=== PATIENT | female | born 1955 | race Caucasian/White ===

== ENCOUNTER 2017-01-07 20:05 | Observation (INO) | payer OTHER ==
[~2017-01-07] VITALS: Ht 177.8 cm; Wt 101.8 kg
[2017-01-07 22:57] VITALS: PULSE 57; TEMP 97.5
[2017-01-08 00:43] VITALS: BP 145/72
[2017-01-08] MEDS ORDERED: K-DUR20 MEQ PO (01:38)
[2017-01-08] MEDS ORDERED: EPA FISH OIL1 SGL PO (01:39)
[2017-01-08] MEDS ORDERED: FLONASEALLERGY NS (01:40)
[2017-01-08] MEDS ORDERED: ZOCOR 40MG40 MG PO ×2 (01:40→01:49)
[2017-01-08] MEDS ORDERED: AMITRIPTYLINE H75 M1 PO (01:41)
[2017-01-08] MEDS ORDERED: PROTONIX 40MG T40 MG PO (01:41)
[2017-01-08] MEDS ORDERED: PAXIL CR37.5 MG PO (01:42)
[2017-01-08] MEDS ORDERED: KLONOPIN 0.5MG0.5 MG PO (01:43)
[2017-01-08] MEDS ORDERED: ZESTRIL40 MG PO (01:44)
[2017-01-08] MEDS ORDERED: VICTOZA6 MG/ML SQ (01:44)
[2017-01-08] MEDS ORDERED: FORTAMET500 M1 PO (01:45)
[2017-01-08] MEDS ORDERED: JANUVIA 100MG100 MG PO (01:45)
[2017-01-08] MEDS ORDERED: VITAMIN D 50,1.25 MG PO (01:47)
[2017-01-08] MEDS ORDERED: NICODERM C14 MG/PATC TD (01:48)
[2017-01-08] MEDS ORDERED: VITAMIN B11000 MCG/M IM (01:48)
[2017-01-08] MEDS ORDERED: PLAVIX 75MG TAB75 MG PO (01:49)
[2017-01-08] MEDS ORDERED: NORCO 325 MG-101 TAB PO (01:50)
[2017-01-08] MEDS ORDERED: FLEXERIL 1010 MG/TAB PO (01:51)
[2017-01-08] MEDS ORDERED: LOPRESSOR 225 MG/TAB PO (01:51)
[2017-01-08 04:49] VITALS: BP 126/53; PULSE 65; TEMP 97.7
[2017-01-08 07:30] LABS: BASO % 0.2 % (0.0-2.0); EOS # 0.1 (0.0-0.7); EOS % 2.2 % (0-4.0); GRAN # 2.2 (1.4-6.5); GRAN % 48.1 % (42.2-75.2); LYMPH # 1.8 (1.2-3.4); LYMPH % 40.1 % (20.0-51.0); MEAN CELL VOLUME 67 fl (80.0-100.0); MEAN CORPUSCULAR HGB CONC 29 g/dl (33.0-37.0); MEAN PLATELET VOLUME 10.1 fl (7.4-10.4); MONO # 0.4 (0.1-0.6); MONO % 9.4 % (1.7-9.3); PLATELET COUNT 192 K/mm3 (130-400); RED BLOOD COUNT 4.88 M/mm3 (4.10-5.30); REDCELL DISTRIBUTION WIDTH-CV 18.2 % (11.5-14.5); WHITE BLOOD COUNT 4.6 K/mm3 (4.8-10.8)
[2017-01-08 07:32] LABS: HEMOGLOBIN 9.4 g/dl (12.5-16.0); MEAN CORPUSCULAR HEMOGLOBIN 19 pg (27.0-31.0)
[2017-01-08 07:33] LABS: HEMATOCRIT 32.5 % (37.0-47.0)
[2017-01-08 07:52] LABS: CALCIUM 8.4 mg/dL (8.4-10.2); CREATININE, serum 0.66 mg/dL (0.52-1.25); POTASSIUM 3.7 mmol/L (3.4-5.0)
[2017-01-08 09:42] VITALS: BP 133/48; PULSE 55; TEMP 98
[2017-01-08 14:32] VITALS: BP 205/82; PULSE 77; TEMP 97.5
[2017-01-08 16:00] VITALS: BP 156/65
[2017-01-08 22:21] VITALS: BP 153/62; PULSE 51; TEMP 97.4
[2017-01-09 04:50] VITALS: BP 139/52; PULSE 54; TEMP 98.5
[2017-01-09 08:28] LABS: MEAN CELL VOLUME 68 fl (80.0-100.0); MEAN CORPUSCULAR HGB CONC 29 g/dl (33.0-37.0); MEAN PLATELET VOLUME 9.9 fl (7.4-10.4); PLATELET COUNT 174 K/mm3 (130-400); RED BLOOD COUNT 4.87 M/mm3 (4.10-5.30); REDCELL DISTRIBUTION WIDTH-CV 18.5 % (11.5-14.5); WHITE BLOOD COUNT 3.6 K/mm3 (4.8-10.8)
[2017-01-09 08:32] LABS: HEMATOCRIT 32.9 % (37.0-47.0); HEMOGLOBIN 9.5 g/dl (12.5-16.0); MEAN CORPUSCULAR HEMOGLOBIN 20 pg (27.0-31.0)
[2017-01-09 09:54] VITALS: BP 194/68; PULSE 59; TEMP 97.7
[2017-01-09 11:20] VITALS: BP 162/70
== END 2017-01-09 12:46 | disposition home or self-care (01) ==
LOC: SURG 20:05 → JCC 22:12
PROVIDERS: Surgery
DX: R10.12 Left upper quadrant pain (principal); E66.01 Morbid (severe) obesity due to excess calories; Z98.84 Bariatric surgery status; Z86.73 Personal history of transient ischemic attack (TIA), and cerebral infarction without residual deficits; E78.5 Hyperlipidemia, unspecified; E11.9 Type 2 diabetes mellitus without complications; I10 Essential (primary) hypertension; D64.9 Anemia, unspecified; G89.29 Other chronic pain; E87.5 Hyperkalemia; F17.210 Nicotine dependence, cigarettes, uncomplicated; Z86.79 Personal history of other diseases of the circulatory system
CPT/HCPCS: G0378; G0379; J1650; J1815; J2270; J2405; J3480

== ENCOUNTER 2017-08-18 10:17 | Outpatient (CLI) | payer MEDICAID ==
[~2017-08-18] VITALS: Ht 177.8 cm; Wt 106.7 kg
[~2017-08-18 10:17] MED LIST: AMITRIPTYLINE H75 M1 PO; EPA FISH OIL1 SGL PO; FLEXERIL 1010 MG/TAB PO; FLONASEALLERGY NS; FORTAMET500 M1 PO; JANUVIA 100MG100 MG PO; K-DUR20 MEQ PO; KLONOPIN 0.5MG0.5 MG PO; LOPRESSOR 225 MG/TAB PO; NICODERM C14 MG/PATC TD; NORCO 325 MG-101 TAB PO; PAXIL CR37.5 MG PO; PLAVIX 75MG TAB75 MG PO; PROTONIX20 MG PO; VICTOZA6 MG/ML SQ; VITAMIN B11000 MCG/M IM; VITAMIN D 50,1.25 MG PO; ZESTRIL 20MG TA20 MG PO; ZOCOR 40MG40 MG PO
[2017-08-18 10:53] VITALS: BP 162/61; PULSE 57; TEMP 98.1
== END 2017-08-18 13:07 | disposition home or self-care (01) ==
LOC: COL.CAR 10:17
DX: I47.1 Supraventricular tachycardia (principal); E11.9 Type 2 diabetes mellitus without complications; Z79.84 Long term (current) use of oral hypoglycemic drugs; Z88.1 Allergy status to other antibiotic agents; Z88.8 Allergy status to other drugs, medicaments and biological substances; F41.9 Anxiety disorder, unspecified; I10 Essential (primary) hypertension; E66.9 Obesity, unspecified; Z86.73 Personal history of transient ischemic attack (TIA), and cerebral infarction without residual deficits; Z86.718 Personal history of other venous thrombosis and embolism; Z79.01 Long term (current) use of anticoagulants; M43.07 Spondylolysis, lumbosacral region; Z86.79 Personal history of other diseases of the circulatory system

== ENCOUNTER → 2020-03-07 | Outpatient (CLI) | payer MEDICAID | LOC: COL.RAD 09:43 | DX: M25.552 Pain in left hip (principal) ==

== ENCOUNTER 2020-08-17 01:53 | Emergency (ER) | payer MEDICAID ==
[~2020-08-17] VITALS: Ht 177.8 cm; Wt 100.0 kg
[2020-08-17 02:11] VITALS: TEMP 98.8
[2020-08-17] MEDS ORDERED: CEPHALEXIN500 M1 PO (02:26)
[2020-08-17 02:41] VITALS: BP 146/82; PULSE 82
== END 2020-08-17 02:41 | disposition home or self-care (01) ==
LOC: COL.ER 01:53
DX: S91.301A Unspecified open wound, right foot, initial encounter (principal); E11.9 Type 2 diabetes mellitus without complications; I10 Essential (primary) hypertension; E78.5 Hyperlipidemia, unspecified; F41.9 Anxiety disorder, unspecified; G43.909 Migraine, unspecified, not intractable, without status migrainosus; F43.10 Post-traumatic stress disorder, unspecified; Z79.02 Long term (current) use of antithrombotics/antiplatelets; Z88.1 Allergy status to other antibiotic agents; Z88.6 Allergy status to analgesic agent; Z88.5 Allergy status to narcotic agent; Z88.8 Allergy status to other drugs, medicaments and biological substances; S91.311A Laceration without foreign body, right foot, initial encounter; Z79.899 Other long term (current) drug therapy; W26.0XXA Contact with knife, initial encounter; Y92.009 Unspecified place in unspecified non-institutional (private) residence as the place of occurrence of the external cause

== ENCOUNTER → 2020-12-18 | Outpatient (CLI) | payer MEDICAID ==
[~2020-12-18] MED LIST changes: +CEPHALEXIN500 M1 PO
== END ==
LOC: COL.RAD 10:30
DX: Z98.84 Bariatric surgery status (principal)

== ENCOUNTER 2021-08-18 21:01 | Emergency (ER) | payer MEDICAID ==
[~2021-08-18] VITALS: Ht 180.3 cm; Wt 109.1 kg
[2021-08-18 21:08] VITALS: TEMP 97
[2021-08-18] MEDS ORDERED: ROBAXIN 75750 MG/TAB PO (21:33)
[2021-08-18 21:50] VITALS: BP 139/86; PULSE 86
== END 2021-08-18 21:50 | disposition home or self-care (01) ==
LOC: COL.ER 21:01
DX: M54.50 Low back pain, unspecified (principal); G89.29 Other chronic pain; F17.210 Nicotine dependence, cigarettes, uncomplicated; Z86.718 Personal history of other venous thrombosis and embolism; Z98.890 Other specified postprocedural states; Z88.6 Allergy status to analgesic agent; Z28.310 Unvaccinated for COVID-19; Z79.01 Long term (current) use of anticoagulants
CPT/HCPCS: J1885

== ENCOUNTER → 2022-02-18 | Outpatient (CLI) | payer MEDICAID ==
[~2022-02-18] MED LIST changes: +ROBAXIN 75750 MG/TAB PO
== END ==
LOC: MC.RAD 13:00
DX: Z12.31 Encounter for screening mammogram for malignant neoplasm of breast (principal)

== ENCOUNTER 2022-02-19 17:12 | Emergency (ER) | payer MEDICAID ==
[~2022-02-19] VITALS: Ht 177.8 cm; Wt 109.1 kg
[2022-02-19 17:31] VITALS: TEMP 97.7
[2022-02-19 21:23] VITALS: BP 192/86; PULSE 60
== END 2022-02-19 21:30 | disposition home or self-care (01) ==
LOC: COL.ER 17:12
DX: S63.501A Unspecified sprain of right wrist, initial encounter (principal); S00.03XA Contusion of scalp, initial encounter; S70.02XA Contusion of left hip, initial encounter; S40.012A Contusion of left shoulder, initial encounter; I10 Essential (primary) hypertension; F17.210 Nicotine dependence, cigarettes, uncomplicated; Z28.310 Unvaccinated for COVID-19; W01.198A Fall on same level from slipping, tripping and stumbling with subsequent striking against other object, initial encounter; Y92.480 Sidewalk as the place of occurrence of the external cause
CPT/HCPCS: J1885

== ENCOUNTER → 2022-07-25 | Outpatient (CLI) | payer MEDICAID | LOC: COL.RAD 10:41 | DX: E27.8 Other specified disorders of adrenal gland (principal); N28.1 Cyst of kidney, acquired; K76.0 Fatty (change of) liver, not elsewhere classified; Z90.49 Acquired absence of other specified parts of digestive tract; Z98.890 Other specified postprocedural states; M89.8X8 Other specified disorders of bone, other site ==